=== PATIENT | female | born 1980 | race Caucasian/White ===

== ENCOUNTER 2017-12-08 22:10 | Emergency (ER) | payer OTHER ==
[~2017-12-08] VITALS: Ht 162.6 cm; Wt 78.0 kg
[2017-12-08] MEDS ORDERED: NOHOMEMEDICATIONS (22:23)
[2017-12-08 22:37] LABS: ABSOLUTE BASOPHILS 0.1 thou/uL (0.0-0.2); ABSOLUTE EOSINOPHILS 0.3 thou/uL (0.0-0.7); ABSOLUTE LYMPHOCYTES 3.7 thou/uL (0.8-5.3); ABSOLUTE NEUTROPHILS 5.3 thou/uL (1.6-8.1); EOSINOPHILS 3.1 %; HEMATOCRIT 41.6 % (37.0-47.0); LYMPHOCYTES 35.3 %; MCH 30.1 pg (26.0-34.0); MCHC 33.8 g/dL (28.0-37.0); MCV 89.2 fL (80.0-100.0); MONOCYTES 9.6 %; MPV 7.5 fl. (7.2-11.1); NUCLEATED RBCS 0 /100WBC; PLATELET COUNT* 303 thou/uL (150-400); RBC 4.66 mil/uL (4.20-5.00); RDW-CV 13.6 % (10.5-14.5); WBC 10.4 thou/uL (4.0-11.0)
[2017-12-08 22:45] LABS: CALCIUM 9.1 mg/dL (8.5-10.1); CREATININE 0.8 mg/dL (0.6-1.3); POTASSIUM 3.5 mmol/L (3.5-5.1)
[2017-12-08] MEDS ORDERED: HYDROCODONE-ACE15 ML PO (22:52)
[2017-12-08 22:55] LABS: ALBUMIN 3.8 g/dL (3.4-5.0); TOTAL BILIRUBIN 0.2 mg/dL (<0.1-1.0)
[2017-12-08 23:23] VITALS: BP 125/83
== END 2017-12-08 23:25 | disposition home or self-care (01) ==
LOC: M.ERS 22:10
PROVIDERS: Emergency Medicine
DX: J02.9 Acute pharyngitis, unspecified (principal); Z88.1 Allergy status to other antibiotic agents; Z90.710 Acquired absence of both cervix and uterus

== ENCOUNTER 2018-03-19 17:53 | Emergency (ER) | payer OTHER ==
[~2018-03-19] VITALS: Ht 160 cm; Wt 77.1 kg
[~2018-03-19 17:53] MED LIST: HYDROCODONE-ACE15 ML PO; NOHOMEMEDICATIONS
[2018-03-19] MEDS ORDERED: ADDERALL 20 MG20 M1 PO (18:06)
[2018-03-19] MEDS ORDERED: IBUPROFEN 800800 M1 PO (18:07)
[2018-03-19 18:14] LABS: URINE BILIRUBIN NEGATIVE (Negative); URINE BLOOD NEGATIVE (Negative); URINE CLARITY CLEAR; URINE COLOR YELLOW; URINE GLUCOSE-RANDOM NEGATIVE (Negative); URINE KETONES NEGATIVE (Negative); URINE LEUKOCYTES-REFLEX NEGATIVE (Negative); URINE NITRITE-REFLEX NEGATIVE (Negative); URINE PROTEIN NEGATIVE (Negative); URINE SPECIFIC GRAVITY 1.025 (1.005-1.030); URINE UROBILINOGEN 0.2 E.U./dl (0.2-1.0)
[2018-03-19 18:32] LABS: ABSOLUTE BASOPHILS 0.1 thou/uL (0.0-0.2); ABSOLUTE EOSINOPHILS 0.3 thou/uL (0.0-0.7); ABSOLUTE LYMPHOCYTES 2.6 thou/uL (0.8-5.3); ABSOLUTE MONOCYTES 0.8 thou/uL (0.0-1.2); ABSOLUTE NEUTROPHILS 3.5 thou/uL (1.6-8.1); BASOPHILS 0.8 %; EOSINOPHILS 4.3 %; HEMATOCRIT 39.6 % (37.0-47.0); HEMOGLOBIN 13.1 gm/dL (12.0-15.0); LYMPHOCYTES 35.9 %; MCH 29.1 pg (26.0-34.0); MCHC 33.2 g/dL (28.0-37.0); MCV 87.9 fL (80.0-100.0); MONOCYTES 10.5 %; MPV 7.7 fl. (7.2-11.1); NUCLEATED RBCS 0 /100WBC; PLATELET COUNT* 273 thou/uL (150-400); POLYS 48.5 %; RBC 4.51 mil/uL (4.20-5.00); RDW-CV 13.7 % (10.5-14.5); WBC 7.2 thou/uL (4.0-11.0)
[2018-03-19 18:41] LABS: CALCIUM 8.2 mg/dL (8.5-10.1); CREATININE 0.7 mg/dL (0.6-1.3); POTASSIUM 3.7 mmol/L (3.5-5.1)
[2018-03-19 18:43] LABS: ALBUMIN 3.4 g/dL (3.4-5.0); TOTAL BILIRUBIN 0.4 mg/dL (<0.1-1.0); TOTAL PROTEIN 6.4 g/dL (6.4-8.2)
[2018-03-19 19:35] VITALS: BP 103/73
== END 2018-03-19 19:38 | disposition home or self-care (01) ==
LOC: M.ERS 17:53
PROVIDERS: Physician Assistant
DX: R30.0 Dysuria (principal); R10.9 Unspecified abdominal pain; Z88.1 Allergy status to other antibiotic agents; Z90.710 Acquired absence of both cervix and uterus

== ENCOUNTER 2018-03-21 08:35 | Emergency (ER) | payer OTHER ==
[~2018-03-21] VITALS: Ht 160 cm; Wt 77.1 kg
[~2018-03-21 08:35] MED LIST changes: +ADDERALL 20 MG20 M1 PO; +IBUPROFEN 800800 M1 PO
[2018-03-21 09:00] LABS: URINE BILIRUBIN NEGATIVE (Negative); URINE BLOOD NEGATIVE (Negative); URINE CLARITY CLEAR; URINE COLOR YELLOW; URINE GLUCOSE-RANDOM NEGATIVE (Negative); URINE KETONES NEGATIVE (Negative); URINE LEUKOCYTES-REFLEX NEGATIVE (Negative); URINE NITRITE-REFLEX NEGATIVE (Negative); URINE PROTEIN NEGATIVE (Negative); URINE SPECIFIC GRAVITY <= 1.005 (1.005-1.030); URINE UROBILINOGEN 0.2 E.U./dl (0.2-1.0)
[2018-03-21 09:34] LABS: ABSOLUTE BASOPHILS 0.1 thou/uL (0.0-0.2); ABSOLUTE LYMPHOCYTES 1.1 thou/uL (0.8-5.3); ABSOLUTE MONOCYTES 0.3 thou/uL (0.0-1.2); ABSOLUTE NEUTROPHILS 6.4 thou/uL (1.6-8.1); BASOPHILS 0.9 %; EOSINOPHILS 0.3 %; HEMATOCRIT 41.5 % (37.0-47.0); HEMOGLOBIN 13.7 gm/dL (12.0-15.0); LYMPHOCYTES 13.8 %; MCH 29.3 pg (26.0-34.0); MCV 88.8 fL (80.0-100.0); MONOCYTES 3.3 %; MPV 8.1 fl. (7.2-11.1); NUCLEATED RBCS 0 /100WBC; PLATELET COUNT* 280 thou/uL (150-400); POLYS 81.7 %; RBC 4.67 mil/uL (4.20-5.00); RDW-CV 13.4 % (10.5-14.5); WBC 7.9 thou/uL (4.0-11.0)
[2018-03-21 09:48] LABS: CALCIUM 8.9 mg/dL (8.5-10.1); CREATININE 0.8 mg/dL (0.6-1.3); POTASSIUM 4.3 mmol/L (3.5-5.1)
[2018-03-21 09:52] LABS: ALBUMIN 3.4 g/dL (3.4-5.0); TOTAL BILIRUBIN 0.2 mg/dL (<0.1-1.0); TOTAL PROTEIN 6.7 g/dL (6.4-8.2)
[2018-03-21] MEDS ORDERED: BENTYL 20 MG TA20 M1 PO (11:11)
[2018-03-21 11:17] VITALS: BP 140/78
== END 2018-03-21 11:20 | disposition home or self-care (01) ==
LOC: M.ERS 08:35
PROVIDERS: Family Medicine
DX: R10.84 Generalized abdominal pain (principal); R10.2 Pelvic and perineal pain; M54.9 Dorsalgia, unspecified; Z90.710 Acquired absence of both cervix and uterus; Z98.890 Other specified postprocedural states; Z88.1 Allergy status to other antibiotic agents

== ENCOUNTER 2018-07-19 00:50 | Emergency (ER) | payer OTHER ==
[~2018-07-19] VITALS: Ht 162.6 cm; Wt 76.2 kg
[~2018-07-19 00:50] MED LIST changes: +BENTYL 20 MG TA20 M1 PO
[2018-07-19 01:19] LABS: URINE BILIRUBIN NEGATIVE (Negative); URINE BLOOD NEGATIVE (Negative); URINE CLARITY CLEAR; URINE COLOR YELLOW; URINE GLUCOSE-RANDOM NEGATIVE (Negative); URINE KETONES TRACE (Negative); URINE LEUKOCYTES-REFLEX NEGATIVE (Negative); URINE NITRITE-REFLEX NEGATIVE (Negative); URINE PROTEIN NEGATIVE (Negative); URINE SPECIFIC GRAVITY >= 1.030 (1.005-1.030); URINE UROBILINOGEN 0.2 E.U./dl (0.2-1.0)
[2018-07-19 01:27] LABS: AMP/METHAMP Negative (Negative); BARBITURATES Negative (Negative); BENZODIAZEPINES Negative (Negative); COCAINE Negative (Negative); METHADONE Negative (Negative); OPIATES POSITIVE (Negative); PCP Negative (Negative); THC Negative (Negative)
[2018-07-19] MEDS ORDERED: NAPROSYN500 M1 PO (01:40)
[2018-07-19] MEDS ORDERED: FLEXERIL PO (01:40)
[2018-07-19 01:54] VITALS: BP 114/78
== END 2018-07-19 01:54 | disposition home or self-care (01) ==
LOC: M.ERS 00:50
PROVIDERS: Emergency Medicine
DX: M54.9 Dorsalgia, unspecified (principal); R51 Headache; Z88.1 Allergy status to other antibiotic agents; Z98.890 Other specified postprocedural states; Z90.710 Acquired absence of both cervix and uterus; Z79.899 Other long term (current) drug therapy

== ENCOUNTER 2018-07-23 09:04 | Emergency (ER) | payer OTHER ==
[~2018-07-23] VITALS: Ht 162.6 cm; Wt 77.1 kg
[~2018-07-23 09:04] MED LIST changes: +FLEXERIL PO; +NAPROSYN500 M1 PO
[2018-07-23 10:20] LABS: ABSOLUTE BASOPHILS 0.1 thou/uL (0.0-0.2); ABSOLUTE EOSINOPHILS 0.5 thou/uL (0.0-0.7); ABSOLUTE MONOCYTES 1.1 thou/uL (0.0-1.2); BASOPHILS 1.1 %; EOSINOPHILS 4.4 %; HEMATOCRIT 41.9 % (37.0-47.0); HEMOGLOBIN 13.7 gm/dL (12.0-15.0); LYMPHOCYTES 37.4 %; MCH 29.1 pg (26.0-34.0); MCHC 32.7 g/dL (28.0-37.0); MONOCYTES 10.2 %; MPV 7.7 fl. (7.2-11.1); NUCLEATED RBCS 0 /100WBC; PLATELET COUNT* 319 thou/uL (150-400); POLYS 46.9 %; RDW-CV 13.7 % (10.5-14.5); WBC 10.8 thou/uL (4.0-11.0)
[2018-07-23 10:32] LABS: URINE BILIRUBIN NEGATIVE (Negative); URINE BLOOD NEGATIVE (Negative); URINE CLARITY CLEAR; URINE COLOR YELLOW; URINE GLUCOSE-RANDOM NEGATIVE (Negative); URINE KETONES TRACE (Negative); URINE LEUKOCYTES-REFLEX NEGATIVE (Negative); URINE NITRITE-REFLEX NEGATIVE (Negative); URINE PROTEIN NEGATIVE (Negative); URINE SPECIFIC GRAVITY 1.025 (1.005-1.030); URINE UROBILINOGEN 0.2 E.U./dl (0.2-1.0)
[2018-07-23 10:33] LABS: CALCIUM 8.8 mg/dL (8.5-10.1); CREATININE 0.9 mg/dL (0.6-1.3); POTASSIUM 4.1 mmol/L (3.5-5.1)
[2018-07-23 10:37] LABS: ALBUMIN 3.5 g/dL (3.4-5.0); TOTAL BILIRUBIN 0.1 mg/dL (<0.1-1.0); TOTAL PROTEIN 6.8 g/dL (6.4-8.2)
[2018-07-23] MEDS ORDERED: VALIUM5 MG PO (12:16)
[2018-07-23] MEDS ORDERED: COLACE100 MG PO (12:16)
[2018-07-23] MEDS ORDERED: BENTYL 20 MG TA20 M1 PO (12:16)
[2018-07-23 12:35] VITALS: BP 112/78
== END 2018-07-23 12:35 | disposition home or self-care (01) ==
LOC: M.ERS 09:04
PROVIDERS: Personal Emergency Response Attendant
DX: K59.00 Constipation, unspecified (principal); R07.81 Pleurodynia; Z90.710 Acquired absence of both cervix and uterus; Z88.1 Allergy status to other antibiotic agents

== ENCOUNTER 2018-11-22 20:24 | Emergency (ER) | payer BC ==
[~2018-11-22] VITALS: Ht 160 cm; Wt 79.4 kg
[~2018-11-22 20:24] MED LIST changes: +COLACE100 MG PO; +VALIUM5 MG PO
[2018-11-22] MEDS ORDERED: PROZAC20 MG PO (20:32)
[2018-11-22] MEDS ORDERED: BUTALB-APAP-CA1 EACH PO (21:05)
[2018-11-22 21:50] VITALS: BP 130/78
== END 2018-11-22 21:50 | disposition home or self-care (01) ==
LOC: M.ERS 20:24
DX: R51 Headache (principal); R11.2 Nausea with vomiting, unspecified; Z90.710 Acquired absence of both cervix and uterus; Z98.890 Other specified postprocedural states; Z88.1 Allergy status to other antibiotic agents

== ENCOUNTER 2019-05-03 10:53 | Emergency (ER) | payer BC, OTHER, MEDICAID ==
[~2019-05-03] VITALS: Ht 162.6 cm; Wt 72.6 kg
[~2019-05-03 10:53] MED LIST changes: +BUTALB-APAP-CA1 EACH PO; +PROZAC20 MG PO
[2019-05-03] MEDS ORDERED: CLONAZEPAM 0.50.5 M1 PO (11:07)
[2019-05-03 12:36] VITALS: BP 116/74
== END 2019-05-03 12:36 | disposition home or self-care (01) ==
LOC: M.ERS 10:53
DX: S06.0X0A Concussion without loss of consciousness, initial encounter (principal); F17.200 Nicotine dependence, unspecified, uncomplicated; Z90.89 Acquired absence of other organs; Z90.710 Acquired absence of both cervix and uterus; Z88.1 Allergy status to other antibiotic agents; W22.8XXA Striking against or struck by other objects, initial encounter; Y92.89 Other specified places as the place of occurrence of the external cause; Y93.89 Activity, other specified; Y99.8 Other external cause status

== ENCOUNTER 2020-08-02 06:11 | Emergency (ER) | payer BC ==
[~2020-08-02] VITALS: Ht 162.6 cm; Wt 72.6 kg
[~2020-08-02 06:11] MED LIST changes: +CLONAZEPAM 0.50.5 M1 PO
[2020-08-02 06:43] LABS: ABSOLUTE BASOPHILS 0.1 thou/uL (0.0-0.2); ABSOLUTE EOSINOPHILS 0.3 thou/uL (0.0-0.7); ABSOLUTE LYMPHOCYTES 3.5 thou/uL (0.8-5.3); ABSOLUTE MONOCYTES 0.9 thou/uL (0.0-1.2); ABSOLUTE NEUTROPHILS 3.9 thou/uL (1.6-8.1); BASOPHILS 1.2 %; EOSINOPHILS 3.8 %; HEMATOCRIT 40.4 % (37.0-47.0); HEMOGLOBIN 13.6 gm/dL (12.0-15.0); MCH 29.4 pg (26.0-34.0); MCHC 33.6 g/dL (28.0-37.0); MCV 87.6 fL (80.0-100.0); MONOCYTES 9.9 %; MPV 7.3 fl. (7.2-11.1); NUCLEATED RBCS 0 /100WBC; PLATELET COUNT* 348 thou/uL (150-400); POLYS 45.1 %; RBC 4.62 mil/uL (4.20-5.00); RDW-CV 13.3 % (10.5-14.5); WBC 8.7 thou/uL (4.0-11.0)
[2020-08-02 06:49] LABS: URINE BILIRUBIN NEGATIVE (Negative); URINE BLOOD NEGATIVE (Negative); URINE CLARITY CLEAR; URINE COLOR YELLOW; URINE GLUCOSE-RANDOM NEGATIVE (Negative); URINE KETONES NEGATIVE (Negative); URINE LEUKOCYTES-REFLEX NEGATIVE (Negative); URINE NITRITE-REFLEX NEGATIVE (Negative); URINE PROTEIN NEGATIVE (Negative); URINE SPECIFIC GRAVITY >= 1.030 (1.005-1.030); URINE UROBILINOGEN 0.2 E.U./dl (0.2-1.0)
[2020-08-02 06:53] LABS: CALCIUM 9.2 mg/dL (8.5-10.1); CREATININE 0.8 mg/dL (0.6-1.3); POTASSIUM 3.6 mmol/L (3.5-5.1)
[2020-08-02 06:57] LABS: TOTAL BILIRUBIN 0.4 mg/dL (<0.1-1.0); TOTAL PROTEIN 7.3 g/dL (6.4-8.2)
[2020-08-02 07:00] LABS: AMP/METHAMP POSITIVE (Negative); BARBITURATES Negative (Negative); BENZODIAZEPINES Negative (Negative); COCAINE Negative (Negative); METHADONE Negative (Negative); OPIATES Negative (Negative); PCP Negative (Negative); THC Negative (Negative)
[2020-08-02] MEDS ORDERED: BENTYL 20 MG TA20 M1 PO (08:28)
[2020-08-02] MEDS ORDERED: ZOFRAN ODT4 MG DISSOLVE (08:28)
[2020-08-02 08:49] VITALS: BP 120/70
== END 2020-08-02 08:50 | disposition home or self-care (01) ==
LOC: M.ERS 06:11
PROVIDERS: Personal Emergency Response Attendant
DX: R10.30 Lower abdominal pain, unspecified (principal); F41.9 Anxiety disorder, unspecified; Z88.1 Allergy status to other antibiotic agents; Z79.899 Other long term (current) drug therapy; Z98.890 Other specified postprocedural states; Z90.710 Acquired absence of both cervix and uterus

== ENCOUNTER 2020-11-29 15:58 | Emergency (ER) | payer BC ==
[~2020-11-29] VITALS: Ht 162.6 cm; Wt 76.2 kg
[~2020-11-29 15:58] MED LIST changes: +ZOFRAN ODT4 MG DISSOLVE
[2020-11-29] MEDS ORDERED: CLONAZEPAM 0.50.5 M1 PO (16:13)
[2020-11-29 16:15] LABS: URINE BILIRUBIN NEGATIVE (Negative); URINE BLOOD NEGATIVE (Negative); URINE CLARITY CLEAR; URINE COLOR YELLOW; URINE GLUCOSE-RANDOM NEGATIVE (Negative); URINE KETONES TRACE (Negative); URINE LEUKOCYTES-REFLEX NEGATIVE (Negative); URINE NITRITE-REFLEX NEGATIVE (Negative); URINE PROTEIN NEGATIVE (Negative); URINE UROBILINOGEN 0.2 E.U./dl (0.2-1.0)
[2020-11-29 17:07] LABS: INFLUENZA A ANTIGEN Negative (Negative); INFLUENZA B ANTIGEN Negative (Negative)
[2020-11-29] MEDS ORDERED: MOBIC7.5 MG PO (18:07)
[2020-11-29] MEDS ORDERED: ONDANSETRON HCL4 M2 PO (18:07)
[2020-11-29 18:20] VITALS: BP 118/74
[2020-11-29 18:39] LABS: AMP/METHAMP POSITIVE (Negative); BARBITURATES Negative (Negative); BENZODIAZEPINES Negative (Negative); COCAINE Negative (Negative); METHADONE Negative (Negative); OPIATES Negative (Negative); PCP Negative (Negative); THC Negative (Negative)
== END 2020-11-29 18:21 | disposition home or self-care (01) ==
LOC: M.ERS 15:58
PROVIDERS: Nurse Practitioner
DX: R05 Cough (principal); Z20.822 Contact with and (suspected) exposure to COVID-19; M54.6 Pain in thoracic spine; R11.0 Nausea; Z98.890 Other specified postprocedural states; Z79.899 Other long term (current) drug therapy; Z88.1 Allergy status to other antibiotic agents; Z90.711 Acquired absence of uterus with remaining cervical stump

== ENCOUNTER 2021-02-17 18:56 | Emergency (ER) | payer BC ==
[~2021-02-17] VITALS: Ht 162.6 cm; Wt 72.6 kg
[~2021-02-17 18:56] MED LIST changes: +MOBIC7.5 MG PO; +ONDANSETRON HCL4 M2 PO
[2021-02-17] MEDS ORDERED: ALEVE220 MG PO (19:12)
[2021-02-17 19:17] LABS: URINE BILIRUBIN NEGATIVE (Negative); URINE BLOOD NEGATIVE (Negative); URINE CLARITY CLEAR; URINE COLOR YELLOW; URINE GLUCOSE-RANDOM NEGATIVE (Negative); URINE KETONES TRACE (Negative); URINE LEUKOCYTES-REFLEX NEGATIVE (Negative); URINE NITRITE-REFLEX NEGATIVE (Negative); URINE PROTEIN NEGATIVE (Negative)
[2021-02-17 19:58] LABS: ABSOLUTE BASOPHILS 0.1 thou/uL (0.0-0.2); ABSOLUTE EOSINOPHILS 0.3 thou/uL (0.0-0.7); ABSOLUTE LYMPHOCYTES 2.5 thou/uL (0.8-5.3); ABSOLUTE MONOCYTES 0.8 thou/uL (0.0-1.2); ABSOLUTE NEUTROPHILS 4.2 thou/uL (1.6-8.1); BASOPHILS 1.3 %; EOSINOPHILS 3.7 %; HEMATOCRIT 35.8 % (37.0-47.0); HEMOGLOBIN 12.3 gm/dL (12.0-15.0); MCH 30.5 pg (26.0-34.0); MCHC 34.5 g/dL (28.0-37.0); MCV 88.4 fL (80.0-100.0); MONOCYTES 10.3 %; MPV 7.8 fl. (7.2-11.1); NUCLEATED RBCS 0 /100WBC; PLATELET COUNT* 294 thou/uL (150-400); POLYS 52.7 %; RBC 4.05 mil/uL (4.20-5.00); RDW-CV 13.6 % (10.5-14.5); WBC 7.9 thou/uL (4.0-11.0)
[2021-02-17 20:01] LABS: CALCIUM 8.4 mg/dL (8.5-10.1); CREATININE 0.8 mg/dL (0.6-1.3); POTASSIUM 3.7 mmol/L (3.5-5.1)
[2021-02-17 20:06] LABS: ALBUMIN 3.5 g/dL (3.4-5.0); TOTAL BILIRUBIN 0.4 mg/dL (<0.1-1.0); TOTAL PROTEIN 6.3 g/dL (6.4-8.2)
[2021-02-17] MEDS ORDERED: DIFLUCAN150 MG PO (21:45)
[2021-02-17] MEDS ORDERED: BACTRIM DS TAB1 EACH PO (21:45)
[2021-02-17 21:59] VITALS: BP 102/73
[2021-02-18] MEDS ORDERED: APAP W/CODEINE1 TA2 PO (16:09)
== END 2021-02-17 21:59 | disposition home or self-care (01) ==
LOC: M.ERS 18:56
PROVIDERS: Emergency Medicine
DX: N34.2 Other urethritis (principal); Z90.710 Acquired absence of both cervix and uterus; Z98.890 Other specified postprocedural states

== ENCOUNTER 2021-02-18 13:50 | Emergency (ER) | payer BC ==
[~2021-02-18] VITALS: Ht 154.9 cm; Wt 72.6 kg
[~2021-02-18 13:50] MED LIST changes: +ALEVE220 MG PO; +BACTRIM DS TAB1 EACH PO; +DIFLUCAN150 MG PO
[2021-02-18 14:32] LABS: URINE COLOR ORANGE; URINE SPECIFIC GRAVITY 1.015 (1.005-1.030)
[2021-02-18 14:38] LABS: URINE CLARITY HAZY
[2021-02-18 14:41] LABS: BACTERIA-REFLEX None Seen /HPF (None Seen); CASTS None Seen /LPF (None Seen); CRYSTALS None Seen /LPF (None Seen); SQUAMOUS 0-3 Few /LPF (0-3); URINE RBC None Seen /HPF (0-2); URINE WBC-REFLEX 0-5 Rare /HPF (0-5)
[2021-02-18 15:15] LABS: ABSOLUTE BASOPHILS 0.1 thou/uL (0.0-0.2); ABSOLUTE EOSINOPHILS 0.4 thou/uL (0.0-0.7); ABSOLUTE LYMPHOCYTES 3.1 thou/uL (0.8-5.3); ABSOLUTE MONOCYTES 0.9 thou/uL (0.0-1.2); ABSOLUTE NEUTROPHILS 3.2 thou/uL (1.6-8.1); BASOPHILS 1.4 %; EOSINOPHILS 5.3 %; HEMATOCRIT 34.5 % (37.0-47.0); HEMOGLOBIN 11.8 gm/dL (12.0-15.0); LYMPHOCYTES 40.3 %; MCH 30.5 pg (26.0-34.0); MCHC 34.3 g/dL (28.0-37.0); MCV 89.1 fL (80.0-100.0); MONOCYTES 11.4 %; MPV 7.7 fl. (7.2-11.1); NUCLEATED RBCS 0 /100WBC; PLATELET COUNT* 274 thou/uL (150-400); POLYS 41.6 %; RBC 3.88 mil/uL (4.20-5.00); RDW-CV 13.9 % (10.5-14.5); WBC 7.7 thou/uL (4.0-11.0)
[2021-02-18 15:27] LABS: CALCIUM 7.7 mg/dL (8.5-10.1); CREATININE 0.7 mg/dL (0.6-1.3); POTASSIUM 3.9 mmol/L (3.5-5.1)
[2021-02-18 15:32] LABS: ALBUMIN 3.1 g/dL (3.4-5.0); TOTAL BILIRUBIN 0.2 mg/dL (<0.1-1.0); TOTAL PROTEIN 5.9 g/dL (6.4-8.2)
[2021-02-18] MEDS ORDERED: APAP W/CODEINE1 TA2 PO (16:09)
[2021-02-18 16:20] VITALS: BP 102/65
== END 2021-02-18 16:21 | disposition home or self-care (01) ==
LOC: M.ERS 13:50
PROVIDERS: Physician Assistant
DX: E83.51 Hypocalcemia (principal); D64.9 Anemia, unspecified; R10.30 Lower abdominal pain, unspecified; F17.210 Nicotine dependence, cigarettes, uncomplicated; Z90.710 Acquired absence of both cervix and uterus; Z98.890 Other specified postprocedural states

== ENCOUNTER 2021-05-12 20:12 | Emergency (ER) | payer BC ==
[~2021-05-12] VITALS: Ht 162.6 cm; Wt 72.6 kg
[~2021-05-12 20:12] MED LIST changes: +APAP W/CODEINE1 TA2 PO
[2021-05-12 21:26] VITALS: BP 132/68
== END 2021-05-12 21:26 | disposition home or self-care (01) ==
LOC: M.ERS 20:12
DX: S90.121A Contusion of right lesser toe(s) without damage to nail, initial encounter (principal); Z98.890 Other specified postprocedural states; Z90.711 Acquired absence of uterus with remaining cervical stump; Z79.899 Other long term (current) drug therapy; W22.8XXA Striking against or struck by other objects, initial encounter; Y93.89 Activity, other specified; Y92.89 Other specified places as the place of occurrence of the external cause; Y99.8 Other external cause status

== ENCOUNTER 2021-07-01 09:44 | Emergency (ER) | payer OTHER ==
[~2021-07-01] VITALS: Ht 162.6 cm; Wt 72.6 kg
[2021-07-01 10:10] LABS: URINE BILIRUBIN NEGATIVE (Negative); URINE BLOOD NEGATIVE (Negative); URINE CLARITY CLEAR; URINE COLOR YELLOW; URINE GLUCOSE-RANDOM NEGATIVE (Negative); URINE KETONES NEGATIVE (Negative); URINE LEUKOCYTES-REFLEX NEGATIVE (Negative); URINE NITRITE-REFLEX NEGATIVE (Negative); URINE PROTEIN NEGATIVE (Negative); URINE SPECIFIC GRAVITY <= 1.005 (1.005-1.030); URINE UROBILINOGEN 0.2 E.U./dl (0.2-1.0)
[2021-07-01] MEDS ORDERED: ZOFRAN ODT4 MG DISSOLVE (10:35)
[2021-07-01] MEDS ORDERED: IBUPROFEN 800800 MG PO (10:35)
[2021-07-01] MEDS ORDERED: DIFLUCAN150 MG PO (10:37)
[2021-07-01 10:41] VITALS: BP 126/93
== END 2021-07-01 10:42 | disposition home or self-care (01) ==
LOC: M.ERS 09:44
PROVIDERS: Family Medicine
DX: J06.9 Acute upper respiratory infection, unspecified (principal); Z20.822 Contact with and (suspected) exposure to COVID-19; Z90.89 Acquired absence of other organs; Z90.710 Acquired absence of both cervix and uterus; Z79.899 Other long term (current) drug therapy

== ENCOUNTER 2021-08-13 21:31 | Emergency (ER) | payer OTHER ==
[~2021-08-13] VITALS: Ht 162.6 cm; Wt 74.8 kg
[~2021-08-13 21:31] MED LIST changes: +IBUPROFEN 800800 MG PO
[2021-08-13 22:19] VITALS: BP 103/71
[2021-08-13] MEDS ORDERED: AUGMENTIN 875-1 EACH PO (23:57)
== END 2021-08-14 00:18 | disposition home or self-care (01) ==
LOC: M.ERS 21:31
DX: S61.411A Laceration without foreign body of right hand, initial encounter (principal); Z98.890 Other specified postprocedural states; Z90.711 Acquired absence of uterus with remaining cervical stump; Z79.899 Other long term (current) drug therapy; W54.0XXA Bitten by dog, initial encounter; Y93.89 Activity, other specified; Y92.89 Other specified places as the place of occurrence of the external cause; Y99.8 Other external cause status